=== PATIENT | female | born 1965 ===

== ENCOUNTER → 2021-08-08 | Outpatient (REF) ==
--- NOTE | 2021-08-08 14:31 | REP ---
INDICATION: PAIN COMPARISON: None. TECHNIQUE: AP, lateral, bilateral oblique and sunrise views. FINDINGS: Advanced tricompartmental osteoarthritic degenerative changes include subchondral sclerosis, joint space narrowing, chondrocalcinosis and osteophytosis. There is no evidence for acute fracture or dislocation. Suprapatellar effusion cannot be excluded. IMPRESSION: Advanced tricompartmental osteoarthritic degenerative changes. <Electronically signed by Sancho Soares > 08/08/21 1955
--- NOTE | 2021-08-08 14:32 | REP ---
INDICATION: PAIN COMPARISON: None. TECHNIQUE: AP, lateral, bilateral oblique views of the left hand FINDINGS: Advanced arthritic changes primarily involving the interphalangeal joints and to a lesser extent the 1st carpometacarpal and metacarpophalangeal joint. Findings include subchondral heterogeneity, joint space obliteration, and marginal osteophytosis. No acute fracture or dislocation. No periarticular erosive changes. IMPRESSION: Advanced osteoarthritic degenerative changes primarily involving the interphalangeal joints and 1st digit.. <Electronically signed by Sancho Soares > 08/08/21 [id number]
== END ==
LOC: M PLAIMG 12:40
PROVIDERS: ATTEND Internal Medicine
DX: M18.12 Unilateral primary osteoarthritis of first carpometacarpal joint, left hand (principal); M17.12 Unilateral primary osteoarthritis, left knee

== ENCOUNTER → 2022-01-24 | Outpatient (REF) | LOC: M PLAIMG 13:35 | PROVIDERS: ATTEND Internal Medicine | DX: M51.36 Other intervertebral disc degeneration, lumbar region (principal); M51.37 Other intervertebral disc degeneration, lumbosacral region; M43.07 Spondylolysis, lumbosacral region; M17.12 Unilateral primary osteoarthritis, left knee ==